=== PATIENT | male | born 1960 | race Caucasian/White ===

== ENCOUNTER 2016-12-20 15:52 | Emergency (ER) | payer MEDICAID, OTHER ==
--- NOTE | 2016-12-20 15:55 | EDPHY ---
H & P Time Seen by Provider: 12/20/16 15:54 - Medical/Surgical History Hx Asthma: No Hx Chronic Respiratory Disease: Yes Hx Diabetes: Yes Hx Cardiac Disease: Yes Hx Renal Disease: No Hx Cirrhosis: Yes Hx Alcoholism: Yes Hx HIV/AIDS: No Hx Splenectomy or Spleen Trauma: No Other PMH: NIDDM, HTN, GERD, HYPERLIPIDEMIA, HEP C, SCHIZOAFFECTIVE DISORDER, DEPRESSION, COPD, ETOH ABUSE, ESOPHAGITIS, GASTRITIS, CVA W/O RESIDUAL, ARTHRITIS, HEART MURMUR, ABDOMINAL SURGERY, MOOD DISORDER - Social History Smoking Status: Current every day smoker Constitutional: Initial Vital Signs Temperature (C) 36.8 C 12/20/16 15:54 Heart Rate 90 12/20/16 15:54 Respiratory Rate 18 12/20/16 15:54 Blood Pressure 139/77 H 12/20/16 15:54 O2 Sat (%) 91 L 12/20/16 15:54 O2 Delivery Mode Nasal Cannula O2 (L/minute) 2 Allergies/Adverse Reactions: No Known Allergies Allergy (Verified 09/25/16 14:49) Home Medications: Medication Instructions Recorded Albuterol [Proventil Inhaler HFA 1 - 2 puffs IH Q4H PRN #1 mdi 01/13/16 (*)] Fluticasone/Salmeter 250/50Mcg 1 puffs IH BID #1 disk 01/13/16 [Advair 250/50 (*)] QUEtiapine FUMARATE [Seroquel 200 400 mg PO HS #30 tab 01/13/16 mg (*)] Sertraline HCl [Zoloft 100mg (*)] 100 mg PO DAILY #14 tab 01/13/16 Pantoprazole Sodium [Protonix 40mg 40 mg PO DAILY #10 tab 03/05/16 (*)] Aspirin EC [Aspirin EC 81 mg (*)] 81 mg PO DAILY #0 tab 03/19/16 Carvedilol [Coreg (*)] 3.125 mg PO BIDMEAL #0 tab 03/19/16 Medical Decision Making ED Course/Re-evaluation: CHIEF COMPLAINT: Cough HISTORY OF PRESENT ILLNESS: The patient is a homeless 56 y/o male, with a recent history of bronchitis, arriving via [facility] from nursing home and complaining of a cough for an unclear length of time. This is his 12th visit in the last 12 months for chest pain and alcohol-related complaints. He has an extensive medical history that includes diabetes, hypertension, COPD, schizoaffective disorder, and alcohol abuse. He is largely noncontributory during exam and will not offer any further information regarding his complaint. REVIEW OF SYSTEMS: A 10 point review of systems was performed and is negative with the exception of the elements mentioned in the history of present illness. PHYSICAL EXAM: HR, BP, O2 Sat, RR. Temp noted General Appearance: Alert, dehydrated, appropriate, and non-toxic appearing. Head: Atraumatic without scalp tenderness or obvious injury Eyes: Pupils equal, round, reactive to light and accommodation, EOMI, no trauma , no injection. Ears: Clear bilaterally, no perforation, normal landmarks Nose: Atraumatic, no rhinorrhea, clear. Throat: There is no erythema or exudates, no lesions, normal tonsils, mucus membranes moist. Neck: Supple, 2+ carotid upstroke, nontender, no lymphadenopathy. Respiratory: No retractions, no distress, no wheezes, and no accessory muscle use. Lungs are clear to auscultation bilaterally. Cardiovascular: Regular rate and rhythm, no murmurs, rubs, or gallops. Bilateral carotid, radial, dorsalis pedis, and posterior tibial pulses intact. Good capillary refill all extremities. Gastrointestinal: Abdomen is soft, nontender, non-distended, no masses, no rebound, no guarding, no peritoneal signs. Musculoskeletal: Normal active ROM of all extremities, atraumatic. Neurological: Alert, appropriate, and interactive. The patient has normal DTRs and non-focal cranial nerves, motor, sensory, and cerebellar exam. Skin: No rashes, good turgor, no nodules on palpation. Past medical history: Diabetes, COPD, CVA, schizoaffective disorder, alcoholism , hypertension, hepatitis C, esophagitis, GERD, arthritis, mood disorder, multiple admissions for pneumonia. Past surgical history: unspecified abdominal surgery Family history: Noncontributory. Social history: Alcohol abuse, heavy smoker, homeless Prior medical records reviewed including ED visit 09/25/16 for foot pain. DIAGNOSTICS/PROCEDURES/CRITICAL CARE TIME: The 12 lead EKG was interpreted by myself. EKG shows sinus rhythm rate 96. See hard copy and/or "tracemaster" electronic copy for interpretation. Study: Chest x-ray Indication: Pain, cough Results: Chest x-ray was obtained. Results: No pneumonia. Chronic airways disease. Report read by Dr. Carlton. I viewed the images myself on the PACS system. DIFFERENTIAL DIAGNOSIS: The differential diagnosis for the patient's chest pain included but was not limited to myocardial ischemia, pulmonary embolus, chest wall pain, pleural inflammation, and pulmonary infectious causes. MEDICAL DECISION MAKING: This is a homeless 56 y/o male complaining of a cough. He will not discuss any of his symptoms further. BS normal. Plan for IV, labs including CBC, CHEM, INR, bilirubin, cultures, lactate. UA ordered. EKG is normal. Chest x-ray 1635: Lactate 2.4. Vitals are normal. WBC and chest x-ray pending. 2L IV NS administered. 1725: WBC is not elevated. Vitals are WNL. Patient does not meet SIRS criteria. His chest x-ray shows nothing acute and his EKG is normal. He will be discharged home with referral to PCP for unimproved symptoms over the next few days. - Data Points Laboratory Results: Laboratory Results 12/20/16 16:05 12/20/16 15:58 12/20/16 12/20/16 16:05 15:58 WBC 8.70 10^3/uL REJ (3.80-9.50) RBC 5.41 10^6/uL REJ (4.40-6.38) Hgb 12.6 L g/dL REJ (13.7-17.5) Hct 38.4 L % REJ (40.0-51.0) MCV 71.0 L fL REJ (81.5-99.8) MCH 23.3 L pg REJ (27.9-34.1) MCHC 32.8 g/dL REJ (32.4-36.7) RDW 15.3 H % REJ (11.5-15.2) Plt Count 265 10^3/uL REJ (150-400) MPV 10.5 fL REJ (8.7-11.7) Neut % (Auto) 64.9 % REJ (39.3-74.2) Lymph % (Auto) 27.6 % REJ (15.0-45.0) Guthrie % (Auto) 5.9 % REJ (4.5-13.0) Eos % (Auto) 0.8 % REJ (0.6-7.6) Baso % (Auto) 0.3 % REJ (0.3-1.7) Nucleat RBC Rel Count 0.0 % REJ (0.0-0.2) Absolute Neuts (auto) 5.65 10^3/uL REJ (1.70-6.50) Absolute Lymphs (auto) 2.40 10^3/uL REJ (1.00-3.00) Absolute Monos (auto) 0.51 10^3/uL REJ (0.30-0.80) Absolute Eos (auto) 0.07 10^3/uL REJ (0.03-0.40) Absolute Basos (auto) 0.03 10^3/uL REJ (0.02-0.10) Absolute Nucleated RBC 0.00 10^3/uL REJ (0-0.01) Immature Gran % 0.5 % REJ (0.0-1.1) Immature Gran # 0.04 10^3/uL REJ (0.00-0.10) PT 12.0 SEC (12.0-15.0) INR 0.90 (0.83-1.16) APTT 20.0 L SEC (23.0-38.0) VBG Lactic Acid 2.4 H mmol/L REJ (0.7-2.1) Sodium 146 H mEq/L (134-144) Potassium 4.1 mEq/L (3.5-5.2) Chloride 111 H mEq/L (97-110) Carbon Dioxide 19 L mEq/l (22-31) Anion Gap 16 mEq/L (8-16) BUN 11 mg/dL (7-23) Creatinine 0.9 mg/dL (0.7-1.3) Estimated GFR > 60 Glucose 108 H mg/dL (70-100) Calcium 9.1 mg/dL (8.5-10.4) Total Bilirubin 0.5 mg/dL (0.1-1.4) Medications Given: Discontinued Medications Sodium Chloride (Ns) 2,000 mls @ 0 mls/hr IV EDNOW ONE PRN Reason: Wide Open Stop: 12/20/16 16:42 Last Admin: 12/20/16 16:44 Dose: 2,000 mls Departure - Departure Disposition: Home, Routine, Self-Care Clinical Impression: Cough Condition: Good Instructions: Acute Cough (ED) Additional Instructions: Follow up with your primary care provider for symptoms not improved over the next 2-3 days. Referrals: [facility] [Outside] - As per Instructions Report Scribed for: Patel Foster Report Scribed by: Elle Bates Date of Report: 12/20/16 Time of Report: 15:55
--- NOTE | 2016-12-20 16:04 | CPEKG ---
Heart Rate: 96 RR Interval: 625 P-R Interval: 184 QRSD Interval: 92 QT Interval: 360 QTC Interval: 455 P [place]um [place]: 57 QRS Alum Bank: 51 T Wave Alum Bank: 73 EKG Severity - BORDERLINE ECG - EKG Impression: SINUS RHYTHM EKG Impression: PROBABLE LEFT ATRIAL ABNORMALITY Electronically Signed By: Dennys Grey 23-Dec-2016 07:25:14
[2016-12-20 16:26] LABS: INR 0.9 (0.83-1.16)
[2016-12-20 16:31] LABS: ANION GAP 16 mEq/L (8-16); BILIRUBIN,TOTAL 0.5 mg/dL (0.1-1.4); CALCIUM 9.1 mg/dL (8.5-10.4); CARBON DIOXIDE 19 mEq/l (22-31); CHLORIDE 111 mEq/L (97-110); CREATININE 0.9 mg/dL (0.7-1.3); GLOMERULAR FILTRATION RATE > 60; GLUCOSE 108 mg/dL (70-100); POTASSIUM 4.1 mEq/L (3.5-5.2); SODIUM 146 mEq/L (134-144)
[2016-12-20] MEDS ORDERED: NS 2,000 ML IV ONE (16:41)
--- NOTE | 2016-12-20 16:41 | DX ---
AP and Lateral Chest Indication: Meets sepsis criteria, suspected infection Comparison: Two-view chest dated August 30, 2016 Findings: Lungs have minimal diffuse unchanged peribronchial thickening. No airspace consolidation, e ana or effusion. Heart size within normal limit. No paraspinal soft tissue swelling. Thoracic spine is demineralized. Minimal deformity of the left acromioclavicular joint is unchanged. Impression: No pneumonia. Chronic airways disease.
[2016-12-20 17:16] LABS: % IMMATURE GRANULYOCYTES 0.5 % (0.0-1.1); ABSOLUTE IMMATURE GRANULOCYTES 0.04 10^3/uL (0.00-0.10); ADD DIFF? NO; ADD MORPH? NO; ADD SCAN? NO; ATYPICAL LYMPHOCYTE FLAG 20 (0-99); FRAGMENT RBC FLAG 0 (0-99); HEMATOCRIT 38.4 % (40.0-51.0); HEMOGLOBIN 12.6 g/dL (13.7-17.5); LEFT SHIFT FLG 0 (0-99); LIPEMIA HEMOLYSIS FLAG 80 (0-99); MEAN CELL HEMOGLOBIN 23.3 pg (27.9-34.1); MEAN CELL HEMOGLOBIN CONCENTR. 32.8 g/dL (32.4-36.7); MEAN PLATELET VOLUME 10.5 fL (8.7-11.7); PLATELET CLUMPS FLAG 0 (0-99); PLATELET COUNT 265 10^3/uL (150-400); RED BLOOD CELL COUNT 5.41 10^6/uL (4.40-6.38); RED CELL DISTRIBUTION WIDTH 15.3 % (11.5-15.2)
[2016-12-20 17:36] VITALS: BP 129/73; PULSE 88; RESP 18; O2SAT 98
[2016-12-20 17:37] VITALS: TEMP 98.6
== END 2016-12-20 17:37 | disposition home or self-care (01) ==
DX: R05 Cough (principal); E11.9 Type 2 diabetes mellitus without complications; I10 Essential (primary) hypertension; J44.9 Chronic obstructive pulmonary disease, unspecified; F17.200 Nicotine dependence, unspecified, uncomplicated; Z79.82 Long term (current) use of aspirin; Z86.73 Personal history of transient ischemic attack (TIA), and cerebral infarction without residual deficits

== ENCOUNTER 2017-01-03 09:19 | Emergency (ER) | payer MEDICAID, OTHER ==
[2017-01-03 09:24] VITALS: O2SAT 91
--- NOTE | 2017-01-03 09:34 | EDPHY ---
HPI/HX/ROS/PE/MDM Narrative: CHIEF COMPLAINT: "I was sitting at home watching a movie" HPI: The patient is a 56 y/o male arriving via EMS from the [facility] due to intoxication. Per EMS, he was belligerent with staff there and seemed to be intoxicated, but alcohol use is not permitted at that facility. It's unclear why he was sent to the ED. He denies any complaints to me and endorses alcohol use. He has a known history of alcohol abuse as well as diabetes, schizoaffective disorder, and hypertension. REVIEW OF SYSTEMS: Aside from elements discussed in the HPI, a comprehensive 10-point review of systems was reviewed and is negative. PMH: Diabetes, schizoaffective disorder, hypertension, Hepatitis C, COPD, depression, CVA, arthritis, abdominal surgery, GERD SOCIAL HISTORY: living at [facility], EtOH abuse Prior medical records reviewed including ED visit 12/20/16 for a cough. PHYSICAL EXAM: General:Patient is alert, in no acute distress, smells of alcohol, seems intoxicated. Head, ENT:Eyes are normal to inspection. ENT inspection normal. No head trauma. Neck: Normal inspection. Full range of motion. Respiratory:No respiratory distress. Breath sounds normal bilaterally. Cardiovascular: Regular rate and rhythm. Strong peripheral pulses. Normal cap refill. Abdomen:The abdomen is nontender to palpation. There are no peritoneal signs. There are normal bowel sounds. Back: Normal to inspection. No tenderness to palpation. Skin: Normal color. No rash. Warm and dry. Extremities: Normal appearance. Full range of motion. Neuro: No focal deficits. ED Course: This is a 56 y/o male with a history of alcohol abuse and 12 ED visits in the last year who presents with alcohol intoxication and no complaints. His exam is consistent with alcohol intoxication. No trauma noted. He has been asymptomatic throughout his time here. He is ambulatory without assistance and will be discharged to the [facility] in good condition. He agrees with plan to go to detox. MDM: It is unclear to me why this patient is in the ER. He appears to be intoxicated without any specific complaints or history of injury. The patient is ambulatory without difficulty or assistance. I do not think I can legally hold him in the ER. Prior to his visit being completed, the patient walked out of the ER on his own. General Initial Vital Signs: Initial Vital Signs Temperature (C) 36.6 C 01/03/17 09:19 Heart Rate 88 01/03/17 09:19 Respiratory Rate 16 01/03/17 09:19 Blood Pressure 117/76 01/03/17 09:19 O2 Sat (%) 91 L 01/03/17 09:19 O2 Delivery Mode Room Air Allergies/Adverse Reactions: No Known Allergies Allergy (Verified 09/25/16 14:49) Home Medications: Medication Instructions Recorded Albuterol [Proventil Inhaler HFA 1 - 2 puffs IH Q4H PRN #1 mdi 01/13/16 (*)] Fluticasone/Salmeter 250/50Mcg 1 puffs IH BID #1 disk 01/13/16 [Advair 250/50 (*)] QUEtiapine FUMARATE [Seroquel 200 400 mg PO HS #30 tab 01/13/16 mg (*)] Sertraline HCl [Zoloft 100mg (*)] 100 mg PO DAILY #14 tab 01/13/16 Pantoprazole Sodium [Protonix 40mg 40 mg PO DAILY #10 tab 03/05/16 (*)] Aspirin EC [Aspirin EC 81 mg (*)] 81 mg PO DAILY #0 tab 03/19/16 Carvedilol [Coreg (*)] 3.125 mg PO BIDMEAL #0 tab 03/19/16 Departure - Departure Disposition: Home, Routine, Self-Care Clinical Impression: Alcohol intoxication Qualifiers: Complication of substance-induced condition: uncomplicated Qualified Code(s): F10.120 - Alcohol abuse with intoxication, uncomplicated Condition: Good Instructions: Alcohol Intoxication (ED) Additional Instructions: Medically clear for the [facility]. Referrals: [facility] [Outside] - As per Instructions Report Scribed for: Lavon Gillette Report Scribed by: Elle Bates Date of Report: 01/03/17 Time of Report: 09:26 Physician Review and Approval Statement: Portions of this note were transcribed by an ED scribe. I personally performed the history, physical exam, and medical decision making; and confirm the accuracy of the information in the transcribed note.
[2017-01-03 10:18] VITALS: BP 121/86; PULSE 82; RESP 18; TEMP 98.1
== END 2017-01-03 10:33 | disposition home or self-care (01) ==
LOC: EDUNIT#
DX: F10.120 Alcohol abuse with intoxication, uncomplicated (principal); E11.9 Type 2 diabetes mellitus without complications; I10 Essential (primary) hypertension; J44.9 Chronic obstructive pulmonary disease, unspecified; Z79.82 Long term (current) use of aspirin; Z86.73 Personal history of transient ischemic attack (TIA), and cerebral infarction without residual deficits

== ENCOUNTER → 2017-04-06 | Outpatient (CLI) | payer MEDICAID | LOC: FIMAGING 12:25 | PROVIDERS: ATTEND Orthopaedic Surgery | DX: S93.402S Sprain of unspecified ligament of left ankle, sequela (principal); S96.912A Strain of unspecified muscle and tendon at ankle and foot level, left foot, initial encounter ==